=== PATIENT | male | born 1980 | race Caucasian/White ===

== ENCOUNTER 2017-04-24 18:01 | Inpatient (IN) ==
[2017-04-24] MEDS ORDERED: Vancomycin 1,000 MG in D5% in Water 250 ML IVPB ONE (20:32)
[2017-04-24 21:13] LABS: Basophils % 0.4 %; Eosinophils # 0.5 K/mcL (0.0-0.6); Eosinophils % 4.6 %; Hematocrit 45.1 % (37.5-50.1); Hemoglobin 15.4 g/dL (12.9-16.9); Immature Granulocytes % 0.2 % (0-4); Lymphocytes # 3.1 K/mcL (0.6-4.6); Lymphocytes % 31.6 %; Mean Corpuscular HGB Conc 34.1 g/dL (31.6-35.5); Mean Corpuscular Hemoglobin 30.3 pg (28.0-33.3); Mean Corpuscular Volume 88.8 fL (83.0-100.0); Mean Platelet Volume 10.1 fL (9.4-12.4); Monocytes # 0.9 K/mcL (0.0-1.3); Monocytes % 9.2 %; Neutrophils # 5.3 K/mcL (1.6-8.9); Platelet Count 195 K/mcL (140-400); Red Blood Count 5.08 M/mcL (4.19-5.50); Red Cell Distribution Width 13.5 % (11.5-14.5)
[2017-04-24 21:28] LABS: Alanine Aminotransferase 120 Units/L (0-55); Alkaline Phosphatase 53 Units/L (38-126); Aspartate Amino Transferase 54 Units/L (5-34); BUN/Creatinine Ratio 14 (6-26); Bilirubin,Total 0.6 mg/dL (0.2-1.2); Blood Urea Nitrogen 14 mg/dL (8-26); C-Reactive Protein 1 mg/L (Less than 5); Calcium 9.7 mg/dL (8.6-10.8); Carbon Dioxide 31 mEq/L (19-29); Chloride 103 mEq/L (98-109); Globulin 3.9 g/dL (2.4-3.5); Glucose 92 mg/dL (70-99); Osmolality,Calculated 292 (280-300); Potassium 4.1 mEq/L (3.5-4.5); Sodium 141 mEq/L (136-145); Total Protein 7.9 g/dL (6.0-8.3); eGFR For African Americans > 60 (> 60); eGFR For Non-African Americans > 60 (> 60)
[2017-04-24] MEDS ORDERED: Ketorolac 30 MG/ML VIAL IVP ONE (22:18)
--- NOTE | 2017-04-24 23:52 | Emergency Department Note ---
Disposition Clinical Impression: Cellulitis Qualifiers: Site of cellulitis: extremity Site of cellulitis of extremity: lower extremity Laterality: right Qualified Code(s): L03.115 - Cellulitis of right lower limb Disposition: Admitted As Inpatient Condition: Good Referrals: Ada Sierra CNP [Primary Care Provider] - Extremity Problem HPI - General Chief complaint: ED Extremity Problem,Nontraumatic Stated complaint: "infection in leg" Time Seen by Provider: 04/24/17 20:24 Source: patient Limitations: no limitations Nursing Notes Reviewed: Yes Vital Signs Reviewed: Yes - History of Present Illness HPI Narrative: 36-year-old male who presents with concern for right popliteal swelling and pain. History of drug abuse. Denies recent drug abuse but he has been in rehabilitation previously. He was actually seen 2 nights ago for symptoms of anxiety. He now has pain and redness in the popliteal fossa. He has no recent travel, trauma, recent injection history. General: No acute distress HEENT: Pupils equal and reactive to light, extraoccular muscle movement is normal, TMS are clear bilaterally. Heart: RRR, No murmor rub or gallop Lungs: lungs clear, no wheezing, rales or ronchi. ABD: SNT, no focal areas or tenderness, no guarding or rebound tenderness. Extremities: No cyanosis, clubbing or edema Neuro: CN 2-12 in tact, no focal deficit. strength 5/5. Skin shows erythema and pain in the right popliteal fossa. Medical decision making I am concerned about cellulitis given negative duplex findings. Would start vancomycin. He was given Toradol for pain and I did discuss expectations regarding pain control. The patient will be admitted for further evaluation with IV antibiotics. Pain Scale: 5 - Related Data Home Medications Medication Instructions Recorded Confirmed Ibuprofen [Motrin] 400 mg PO Q6HR PRN 04/24/17 04/24/17 Previous Rx's Medication Instructions Recorded hydrOXYzine HCl [Hydroxyzine HCl] 50 mg PO PRN PRN #30 tablet 04/20/17 Allergies Allergy/AdvReac Type Severity Reaction Status Date / Time No Known Allergies Allergy Verified 04/24/17 18:36 All systems ED: reviewed and negative except as stated. Review of Systems: As Per HPI Past Medical History - Past Medical History Medical history: Reports: pulmonary embolus, other Surgical history: Reports: no surgical history Psychiatric history: Reports: anxiety, depression - Social History Smoking Status: Current every day smoker Smokeless Tobacco Status: No Alcohol use: Reports: none Drug use: Reports: none Physical Exam - General Limitations: no limitations General appearance: alert, in no apparent distress Course Vital Signs Temperature 99.0 F 04/24/17 18:33 Pulse Rate 98 04/24/17 18:33 Respiratory Rate 16 04/24/17 18:33 Blood Pressure 119/80 04/24/17 18:33 O2 Sat by Pulse Oximetry 99 04/24/17 18:33 Temperature 99.0 F 04/24/17 18:33 Pulse Rate 98 04/24/17 18:33 Respiratory Rate 16 04/24/17 18:33 Blood Pressure 119/80 04/24/17 18:33 O2 Sat by Pulse Oximetry 99 04/24/17 18:33 Oxygen Delivery Oxygen Delivery Room Air Extremity Problem, Nontraumati - Lab Data Result diagrams: 04/24/17 20:55 04/24/17 20:55 Lab Results 04/24/17 04/24/17 04/24/17 Range/Units 20:55 20:55 20:55 WBC 9.7 (4.3-11.1) K/mcL RBC 5.08 (4.19-5.50) M/mcL Hgb 15.4 (12.9-16.9) g/dL Hct 45.1 (37.5-50.1) % MCV 88.8 (83.0-100.0) fL MCH 30.3 (28.0-33.3) pg MCHC 34.1 (31.6-35.5) g/dL RDW 13.5 (11.5-14.5) % Plt Count 195 (140-400) K/mcL MPV 10.1 (9.4-12.4) fL Immature Gran % 0.2 (0-4) % Seg Neutrophils % 54.0 % Lymphocytes % 31.6 % Monocytes % 9.2 % Eosinophils % 4.6 % Basophils % 0.4 % Neutrophils # 5.3 (1.6-8.9) K/mcL Lymphocytes # 3.1 (0.6-4.6) K/mcL Monocytes # 0.9 (0.0-1.3) K/mcL Eosinophils # 0.5 (0.0-0.6) K/mcL Basophils # 0.0 (0.0-0.2) K/mcL ESR 28 H (0-10) mm/hr Sodium 141 (136-145) mEq/L Potassium 4.1 (3.5-4.5) mEq/L Chloride 103 (98-109) mEq/L Carbon Dioxide 31 H (19-29) mEq/L BUN 14 (8-26) mg/dL Creatinine 0.99 (0.72-1.25) mg/dL Est GFR ( Amer) > 60 (> 60) Est GFR (Non-Af Amer) > 60 (> 60) BUN/Creatinine Ratio 14 (6-26) Glucose 92 (70-99) mg/dL Calculated Osmolality 292 (280-300) Calcium 9.7 (8.6-10.8) mg/dL Total Bilirubin 0.6 (0.2-1.2) mg/dL AST 54 H (5-34) Units/L ALT 120 H (0-55) Units/L Alkaline Phosphatase 53 (38-126) Units/L C-Reactive Protein 1 (Less than 5) mg/L Serum Total Protein 7.9 (6.0-8.3) g/dL Albumin 4.0 (3.5-5.0) g/dL Globulin 3.9 H (2.4-3.5) g/dL Albumin/Globulin Ratio 1.0 L (1.1-2.2)
[2017-04-25] MEDS ORDERED: Naloxone 0.4 MG/ML INJ IVP PRN (01:11)
[2017-04-25] MEDS ORDERED: Acetaminophen 325 MG TABLET PO PRN (01:11)
[2017-04-25] MEDS ORDERED: Ondansetron 4 MG/2 ML VIAL IVP PRN (01:11)
--- NOTE | 2017-04-25 01:16 | Internal Med History&Physical ---
Date of Encounter: 04/25/17 Time of Encounter: 01:00 Assessment and Plan (1) Cellulitis Current visit: Yes Status: Acute Acute cellulitis of the right lower extremity popliteal fossa - unclear etiology Continue empiric IV Vancomycin, IV fluids, IV Morphine PRN Ultrasound Doppler - negative for DVT Cultures - pending Labs in a.m., monitor closely Qualifiers: Site of cellulitis: extremity Site of cellulitis of extremity: lower extremity Laterality: right Qualified Code(s): L03.115 - Cellulitis of right lower limb (2) Tobacco abuse Current visit: Yes Status: Acute Patient states he smokes about 1 pack of cigarettes daily Sinemet cessation, patient declines nicotine patch at this time (3) IV drug abuse Current visit: Yes Status: Acute Patient has a history of drug use, patient states he has injected heroin in the past States he has a prolapsed one time. Most recent use of cocaine was about one week ago, states he snorted the cocaine. Counseled about cessation (4) DVT prophylaxis Current visit: Yes Status: Acute Heparin subcutaneous Internal Medicine - H&P: HPI Chief complaint: Right leg pain and redness Admitted From: Emergency Dept Plans for Post Hospital Care: Home History of present illness: Mr. Osorio is a 36 year old male with past medical history of anxiety and IV drug use. Patient presents to the ED with complaints of right lower leg redness and pain. Examined in the room. Patient is awake and alert. Not in any distress. Able to provide all history. No family members at bedside. Patient states he noticed a small bilateral in the back of his right lower leg about 2-3 days ago. This has gradually worsened, and now patient complains of extensive redness and severe pain in the popliteal region of the right lower extremity. Patient denies fever. Denies any injury or trauma. Denies any insect bite. Patient states that the chair that he sits on at home, is usually rubbing up against his right leg in the posterior aspect. He thinks this may have caused some trauma possibly. Pain seems worse when he tries to flex the knee. No alleviating factors. He describes the pain as sharp and burning. Rates it 7/ 10. No other associated symptoms. No acute complaints. Patient states he did not inject any illicit drugs into the right popliteal fossa. He states he mainly snorts cocaine, and says his last use was about a week ago. Patient denies injecting any other drugs. Initial workup in the ED is negative. Patient is being admitted for acute cellulitis. He will need IV antibiotics during his stay. Patient has been explained about his condition and plan of care in detail. He understood and agreed. No unanswered questions. CODE STATUS full code. Past Med Surg Social Fam HX - Past Medical History Medical history: pulmonary embolus, other Psychiatric history: anxiety, depression - Past Surgical History Surgical History: no surgical history - Social History Smoking Status: Current every day smoker Smokeless Tobacco Status: No Alcohol use: none Drug use: none - Family History Grandmother Living Status: Hx Family Cancer: Yes (Lung Ca.) Internal Medicine - H&P: Meds hydrOXYzine HCl [Hydroxyzine HCl] 50 mg PO PRN PRN #30 tablet 04/20/17 [Rx] Ibuprofen [Motrin] 400 mg PO Q6HR PRN 04/24/17 [History] 3 Allergy/AdvReac Type Severity Reaction Status Date / Time No Known Allergies Allergy Verified 04/24/17 18:36 All Systems PM: A 10-system review of systems was performed and is negative for pertinent findings except as documented above in the HPI. - Constitutional Constitutional: fatigue, no fever(s), no weakness - EENT Eyes: no blurry vision - Cardiovascular Cardiovascular ROS IM: no chest pain, no dyspnea, no dyspnea on exertion, no edema, no lightheadedness, no orthopnea, no palpitations, no syncope - Respiratory Respiratory: no cough, no dyspnea, no hemoptysis, no dyspnea on exertion, no wheezing, no chest congestion - Gastrointestinal Gastrointestinal: no abdominal pain, no bloating, no cramping, no diarrhea, no hematemesis, no hematochezia, no nausea, no vomiting - Genitourinary Genitourinary ROS male: no dysuria - Neurological Neurological ROS: no abnormal gait, no abnormal speech, no confusion, no dizziness, no loss of vision, no numbness, no tingling - Constitutional Vitals: Temp Pulse Resp BP Pulse Ox 97.6 F 85 14 104/82 98 04/25/17 00:46 04/25/17 00:46 04/25/17 00:46 04/25/17 00:46 04/25/17 00:46 General appearance: Present: cooperative, A&O X 3, pleasant, no acute distress, answers questions appropriately - Head Head exam: Present: atraumatic - Eye Eye exam: Present: EOMI - ENT ENT exam: Present: mucous membranes moist - Respiratory Respiratory exam: Present: CTAB. Absent: accessory muscle use, rales, respiratory distress, rhonchi, wheezes, tachypnea - Cardiovascular Cardiovascular exam: Present: RRR, +S1, +S2 - GI/Abdominal GI/Abdominal exam: Present: soft. Absent: distended, firm, guarding, tenderness - Extremities Exam Extremities exam: Present: radial pulses palpable and symmetrical. Absent: calf tenderness, cyanotic, pedal edema Additional comments: Right popliteal fossa erythema and tenderness present. No discharge noted. - Neurological Exam Neurological exam: Present: alert, oriented X3, no focal deficits. Absent: facial droop, speech deficit Internal Med - H&P Results - Labs CBC & Chem 7: 04/24/17 20:55 04/24/17 20:55
[2017-04-25] MEDS: Ibuprofen 400 MG TABLET PO PRN ×2 (02:54→11:06)
[2017-04-25] MEDS: 0.9 % Sodium Chloride 1,000 ML IVC SCH ×2 (02:55→15:44)
[2017-04-25] MEDS: *HR* Morphine 2 MG/ML SYRINGE IVP PRN ×3 (04:03→13:34)
[2017-04-25 05:01] LABS: Basophils # 0.1 K/mcL (0.0-0.2); Basophils % 0.7 %; Eosinophils # 0.5 K/mcL (0.0-0.6); Hematocrit 44.3 % (37.5-50.1); Hemoglobin 15.1 g/dL (12.9-16.9); Immature Granulocytes % 0.2 % (0-4); Lymphocytes # 3.6 K/mcL (0.6-4.6); Lymphocytes % 40.2 %; Mean Corpuscular HGB Conc 34.1 g/dL (31.6-35.5); Mean Corpuscular Hemoglobin 30.3 pg (28.0-33.3); Mean Corpuscular Volume 88.8 fL (83.0-100.0); Monocytes # 0.8 K/mcL (0.0-1.3); Monocytes % 9.2 %; Neutrophils # 3.9 K/mcL (1.6-8.9); Platelet Count 197 K/mcL (140-400); Red Blood Count 4.99 M/mcL (4.19-5.50); Red Cell Distribution Width 13.7 % (11.5-14.5); Segmented Neutrophils % 43.7 %
[2017-04-25 05:27] LABS: BUN/Creatinine Ratio 15 (6-26); Blood Urea Nitrogen 12 mg/dL (8-26); Carbon Dioxide 20 mEq/L (19-29); Chloride 105 mEq/L (98-109); Glucose 98 mg/dL (70-99); Osmolality,Calculated 286 (280-300); Potassium 3.9 mEq/L (3.5-4.5); Sodium 138 mEq/L (136-145); eGFR For African Americans > 60 (> 60); eGFR For Non-African Americans > 60 (> 60)
[2017-04-25] MEDS ORDERED: *HR* Heparin 5,000 UNIT/ML VIAL SQ SCH (06:00)
[2017-04-25] MEDS ORDERED: Vancomycin 1,000 MG in D5% in Water 250 ML IVPB SCH (06:00)
[2017-04-25] MEDS ORDERED: Vancomycin 1,250 MG in D5% in Water 250 ML IVPB SCH (09:00)
[2017-04-25] MEDS ORDERED: MOM Conc 10 ML UD.LIQ PO ONE (13:42)
[2017-04-25 15:43] VITALS: BP 136/84
--- NOTE | 2017-04-25 16:47 | Discharge Summary ---
Date of Encounter: 04/26/17 Time of Encounter: 16:00 - Discharge Diagnosis (1) Psychosis Priority: Primary Status: Acute Qualifiers: Psychosis type: other Qualified Code(s): F28 - Other psychotic disorder not due to a substance or known physiological condition (2) Cellulitis Priority: Primary Status: Acute Qualifiers: Site of cellulitis: extremity Site of cellulitis of extremity: lower extremity Laterality: right Qualified Code(s): L03.115 - Cellulitis of right lower limb (3) IV drug abuse Priority: Secondary Status: Acute - Discharge Medications Prescriptions: Sulfamethoxazole/Trimeth DS [Bactrim DS] 1 each PO BID #14 tablet Home Medications: hydrOXYzine HCl [Hydroxyzine HCl] 50 mg PO PRN PRN #30 tablet 04/20/17 [Rx] Ibuprofen [Motrin] 400 mg PO Q6HR PRN 04/24/17 [History] Sulfamethoxazole/Trimeth DS [Bactrim DS] 1 each PO BID #14 tablet 04/25/17 [Rx] Allergies/Adverse Reactions: 3 Allergy/AdvReac Type Severity Reaction Status Date / Time No Known Allergies Allergy Verified 04/24/17 18:36 Date of admission: 04/25/17 03:00 Primary care physician: Ada Sierra CNP - Patient Status Disposition: Left Against Medical Advice - Discharge Instructions Follow Up With: Ada Sierra CNP [Primary Care Provider] - Hospital course: 36 year old male with past medical history of anxiety and IV drug use. Patient presents to the ED with complaints of right lower leg redness and pain. He was admitted with right popliteal cellulites and was on IV vancomycin on initial presentation. I saw the patient in the morning and he was hemodynamically stable. Later in the afternoon, he had a friend come in and the door was shut. After that the patient started hallucinating and acccusing the staff of being rude to him. I went and talked to him and he was actually very pleasant and polite. I reassured him that everyone is trying to help him. I suspected the patient may have been under the influence of some type of a drug given his acute change in mental status after his friend had visited. I ordered a urine drug screen. when the nurse came to collect it, he refused and asked to be discharged. He left against medical advice. I still wrote him a script of Bactrim at [facility]. He was explained the risk of leaving prior to leaving AMA. - Time Spent with Patient Total time spent providing and/or coordinating discharge services: - Constitutional Vitals: Temp Pulse Resp BP Pulse Ox 98.7 F 77 16 136/84 96 04/25/17 15:10 04/25/17 15:10 04/25/17 15:10 04/25/17 15:10 04/25/17 15:10 General appearance: Present: cooperative, A&O X 3, pleasant, no acute distress, answers questions appropriately Exam: He was alert and oriented x3 when he was deciding to leave. He had total medical decision making capacity.
[2017-04-25] MEDS ORDERED: Aminoglycoside Consult 1 EACH MC ONE (16:57)
== END 2017-04-25 16:58 | disposition left against medical advice (07) | DRG 603 ==
LOC: EMEROO 18:01 → 3ANU 18:01
PROVIDERS: ADMIT Internal Medicine; ATTEND Internal Medicine

== ENCOUNTER 2018-05-20 16:35 | Inpatient (IN) ==
[2018-05-20 17:41] LABS: Bilirubin,Urine Negative (Negative); Blood,Urine Negative (Negative); Clarity,Urine Clear (Clear); Color,Urine Dark Yellow (Yellow); Glucose,Urine (UA) Normal (Normal); Ketones,Urine Trace mg/dL (Negative); Leukocyte Esterase,Urine Negative (Negative); Nitrite,Urine Negative (Negative); Protein,Urine Negative (Neg-Trace); Urobilinogen,Urine Normal (Normal)
[2018-05-20 17:46] LABS: Basophils # 0.1 K/mcL (0.0-0.2); Basophils % 0.4 %; Eosinophils # 0.1 K/mcL (0.0-0.6); Eosinophils % 0.8 %; Hematocrit 43.3 % (37.5-50.1); Hemoglobin 15.2 g/dL (12.9-16.9); Immature Granulocytes % 0.2 % (0-4); Lymphocytes # 2.6 K/mcL (0.6-4.6); Lymphocytes % 22.6 %; Mean Corpuscular HGB Conc 35.1 g/dL (31.6-35.5); Mean Corpuscular Hemoglobin 30.8 pg (28.0-33.3); Mean Corpuscular Volume 87.8 fL (83.0-100.0); Monocytes # 0.6 K/mcL (0.0-1.3); Monocytes % 5.2 %; Neutrophils # 8.1 K/mcL (1.6-8.9); Platelet Count 201 K/mcL (140-400); Red Blood Count 4.93 M/mcL (4.19-5.50); Red Cell Distribution Width 12.9 % (11.5-14.5); Segmented Neutrophils % 70.8 %
--- NOTE | 2018-05-20 17:52 | Emergency Department Note ---
Disposition Clinical Impression: Suicidal ideation Disposition: Still a Patient Referrals: NONE,PCP [Primary Care Provider] - General Adult HPI - General Chief complaint: ED Psychiatric Symptoms Stated complaint: SI; depression Time Seen by Provider: 05/20/18 17:26 Source: patient Limitations: no limitations Nursing Notes Reviewed: Yes Vital Signs Reviewed: Yes - History of Present Illness HPI Narrative: Attestation note I examined this patient and my medical decision-making was reviewed with the Resident Physician/[employer] HELPER/PA. I agree with the documented findings, disposition and treatment plan as described except to the extent set forth below Patient seen with emergency medicine resident Demetra Thapa, please see copy of his note for details of this patient encounter Briefly: 37-year-old male by EMS for depression and anxiety has a plan for the past 2 days he was recently admitted but he left before psychiatric evaluation so he says. He has been admitted in the past. He denies any drugs or alcohol tonight. His physical examination is benign he is afebrile with stable vitals. Patient will undergo medical clearance and consultation by mental health services.Being ordered. Disposition pending Pain Scale: 0 - Related Data Home Medications Medication Instructions Recorded Confirmed Ibuprofen [Motrin] 400 mg PO Q6HR PRN 04/24/17 04/24/17 Previous Rx's Medication Instructions Recorded hydrOXYzine HCl [Hydroxyzine HCl] 50 mg PO PRN PRN #30 tablet 04/20/17 Sulfamethoxazole/Trimeth DS 1 each PO BID #14 tablet 04/25/17 [Bactrim DS] HydrOXYzine 10 mg PO TID PRN #20 tablet 05/17/18 Allergies Allergy/AdvReac Type Severity Reaction Status Date / Time No Known Allergies Allergy Verified 04/24/17 18:36 Past Medical History - Past Medical History Medical history: Reports: pulmonary embolus, other Surgical history: Reports: no surgical history Psychiatric history: Reports: anxiety, depression - Social History Smoking Status: Current every day smoker Smokeless Tobacco Status: No Alcohol use: Reports: none Drug use: Reports: cocaine, marijuana Physical Exam - General Limitations: no limitations General appearance: alert, in no apparent distress Course Vital Signs Temperature 98.2 F 05/20/18 16:41 Pulse Rate 72 05/20/18 16:41 Respiratory Rate 14 05/20/18 16:41 Blood Pressure 119/76 05/20/18 16:41 O2 Sat by Pulse Oximetry 99 01/02/19 16:41 Temperature 98.2 F 05/20/18 16:49 Pulse Rate 72 05/20/18 16:49 Respiratory Rate 14 05/20/18 16:49 Blood Pressure 119/76 05/20/18 16:49 O2 Sat by Pulse Oximetry 99 05/20/18 16:49 Oxygen Delivery Oxygen Delivery Room Air Medical Decision Making - Lab Data Result diagrams: 05/20/18 17:38 Lab Results 05/20/18 05/20/18 05/20/18 Range/Units 17:00 17:00 17:38 WBC 11.5 H (4.3-11.1) K/mcL RBC 4.93 (4.19-5.50) M/mcL Hgb 15.2 (12.9-16.9) g/dL Hct 43.3 (37.5-50.1) % MCV 87.8 (83.0-100.0) fL MCH 30.8 (28.0-33.3) pg MCHC 35.1 (31.6-35.5) g/dL RDW 12.9 (11.5-14.5) % Plt Count 201 (140-400) K/mcL MPV 10.0 (9.4-12.4) fL Immature Gran % 0.2 (0-4) % Seg Neutrophils % 70.8 % Lymphocytes % 22.6 % Monocytes % 5.2 % Eosinophils % 0.8 % Basophils % 0.4 % Neutrophils # 8.1 (1.6-8.9) K/mcL Lymphocytes # 2.6 (0.6-4.6) K/mcL Monocytes # 0.6 (0.0-1.3) K/mcL Eosinophils # 0.1 (0.0-0.6) K/mcL Basophils # 0.1 (0.0-0.2) K/mcL Urine Color Dark Yellow (Yellow) Urine Clarity Clear (Clear) Urine pH 6.0 (5.0-8.0) pH Units Ur Specific [place] 1.020 (1.010-1.025) Urine Protein Negative (Neg-Trace) mg/dL Urine Glucose (UA) Normal (Normal) mg/dL Urine Ketones Trace H (Negative) mg/dL Urine Blood Negative (Negative) Urine Nitrite Negative (Negative) Urine Bilirubin Negative (Negative) Urine Urobilinogen Normal (Normal) mg/dL Ur Leukocyte Esterase Negative (Negative) Ur Drug Screen Interp See Below
[2018-05-20 18:02] LABS: Amphetamine Screen,Urine Negative ng/mL (Cutoff=1000); Barbiturate Screen,Urine Positive ng/mL (Cutoff=200); Benzodiazepines Screen,Urine Negative ng/mL (Cutoff=200); Cannabinoid Screen,Urine Positive ng/mL (Cutoff = 50); Cocaine Screen,Urine Positive ng/mL (Cutoff= 300); Opiate Screen,Urine Negative ng/mL (Cutoff=300); Phencyclidine Screen,Urine Negative ng/mL (Cutoff=25)
[2018-05-20 18:06] LABS: Acetaminophen < 10 mcg/mL (10-20); BUN/Creatinine Ratio 14 (6-26); Blood Urea Nitrogen 12 mg/dL (6-20); Calcium 9.2 mg/dL (8.6-10.3); Carbon Dioxide 27 mEq/L (23-29); Chloride 105 mEq/L (98-107); Ethanol < 10 mg/dL (Less than 10); Glucose 125 mg/dL (70-105); Osmolality,Calculated 287 (280-300); Potassium 3.7 mEq/L (3.5-5.1); Salicylate < 2.5 mg/dL (15.0-30.0); Sodium 138 mEq/L (136-145); eGFR For Non-African Americans > 60 (> 60)
--- NOTE | 2018-05-20 20:09 | Emergency Department Note ---
Disposition Clinical Impression: Suicidal ideation, Substance abuse Disposition: Admitted As Inpatient Condition: Fair Referrals: NONE,PCP [Primary Care Provider] - Forms: ED Satisfaction Letter Time of Disposition: 20:10 Psych HPI - General Chief Complaint: ED Psychiatric Symptoms Stated Complaint: SI; depression Time Seen by Provider: 05/20/18 17:26 Source: patient Mode of arrival: ambulatory Limitations: no limitations Nursing Notes Reviewed: Yes Vital Signs Reviewed: Yes - History of Present Illness HPI Narrative: 37-year-old male history of SI, depression presents for evaluation of SI. Patient also has history of substance abuse and cocaine use and used earlier today. Patient states that he does have a plan. No history of prior attempts. Patient denies any homicidal ideation. No visual hallucinations or delusions. Denies any chest pain or shortness of breath. Denies any abdominal pain fevers nausea or vomiting. - Related Data Home Medications Medication Instructions Recorded Confirmed Ibuprofen [Motrin] 400 mg PO Q6HR PRN 04/24/17 04/24/17 Previous Rx's Medication Instructions Recorded hydrOXYzine HCl [Hydroxyzine HCl] 50 mg PO PRN PRN #30 tablet 04/20/17 Sulfamethoxazole/Trimeth DS 1 each PO BID #14 tablet 04/25/17 [Bactrim DS] HydrOXYzine 10 mg PO TID PRN #20 tablet 05/17/18 Allergies Allergy/AdvReac Type Severity Reaction Status Date / Time No Known Allergies Allergy Verified 04/24/17 18:36 All systems ED: reviewed and negative except as stated. Constitutional: Denies: fever Cardiovascular: Denies: chest pain Respiratory: Denies: cough, dyspnea Gastrointestinal: Denies: abdominal pain, nausea, vomiting Psychiatric: Reports: depression, suicidal thoughts. Denies: homicidal thoughts Past Medical History - Past Medical History Source: patient Medical history: Reports: pulmonary embolus, other Surgical history: Reports: no surgical history Psychiatric history: Reports: anxiety, depression - Social History Smoking Status: Current every day smoker Smokeless Tobacco Status: No Alcohol use: Reports: none Drug use: Reports: cocaine, marijuana Physical Exam - General Limitations: no limitations General appearance: alert, in no apparent distress - Head Head exam: atraumatic, normocephalic, normal inspection - Eye Eye exam: Present: normal appearance, PERRL, EOMI - ENT ENT exam: normal exam, normal oropharynx, mucous membranes moist - Neck Neck exam: Present: normal inspection - Chest Chest inspection: Present: normal inspection - Respiratory Respiratory exam: Present: normal lung sounds bilaterally. Absent: respiratory distress - Cardiovascular Cardiovascular exam: Present: regular rate, normal rhythm. Absent: systolic murmur - Abdominal Exam Abdominal exam: Present: soft, Non-Tender - Extremities Exam Extremities exam: Present: normal inspection. Absent: pedal edema - Neurological Exam Neurological exam: Present: alert, oriented X3 - Psychiatric Psychiatric exam: Present: depressed - Skin Skin exam: Present: warm, dry, intact, normal color Course Vital Signs Temperature 98.2 F 05/20/18 16:41 Pulse Rate 72 05/20/18 16:41 Respiratory Rate 14 05/20/18 16:41 Blood Pressure 119/76 05/20/18 16:41 O2 Sat by Pulse Oximetry 99 05/20/18 16:41 Temperature 98.2 F 05/20/18 16:49 Pulse Rate 72 05/20/18 16:49 Respiratory Rate 14 05/20/18 16:49 Blood Pressure 119/76 05/20/18 16:49 O2 Sat by Pulse Oximetry 99 05/20/18 16:49 Oxygen Delivery Oxygen Delivery Room Air Psych - MDM Narrative Medical decision making narrative: Patient was medically cleared and had psychiatric evaluation. Attempted to sinus contact with the discussion with the mother who did not feel comfortable with the patient being sent home with his history of suicidal ideation and verbal threats. Patient will be admitted to the psychiatry service at [facility]. Patient was provided with substance abuse resources. Patient is pink slipped. - Lab Data Result diagrams: 05/20/18 17:38 05/20/18 17:38 Lab Results 05/20/18 05/20/18 05/20/18 Range/Units 17:00 17:00 17:38 WBC 11.5 H (4.3-11.1) K/mcL RBC 4.93 (4.19-5.50) M/mcL Hgb 15.2 (12.9-16.9) g/dL Hct 43.3 (37.5-50.1) % MCV 87.8 (83.0-100.0) fL MCH 30.8 (28.0-33.3) pg MCHC 35.1 (31.6-35.5) g/dL RDW 12.9 (11.5-14.5) % Plt Count 201 (140-400) K/mcL MPV 10.0 (9.4-12.4) fL Immature Gran % 0.2 (0-4) % Seg Neutrophils % 70.8 % Lymphocytes % 22.6 % Monocytes % 5.2 % Eosinophils % 0.8 % Basophils % 0.4 % Neutrophils # 8.1 (1.6-8.9) K/mcL Lymphocytes # 2.6 (0.6-4.6) K/mcL Monocytes # 0.6 (0.0-1.3) K/mcL Eosinophils # 0.1 (0.0-0.6) K/mcL Basophils # 0.1 (0.0-0.2) K/mcL Sodium (136-145) mEq/L Potassium (3.5-5.1) mEq/L Chloride (98-107) mEq/L Carbon Dioxide (23-29) mEq/L BUN (6-20) mg/dL Creatinine (0.70-1.30) mg/dL Est GFR ( Amer) (> 60) Est GFR (Non-Af Amer) (> 60) BUN/Creatinine Ratio (6-26) Glucose (70-105) mg/dL Calculated Osmolality (280-300) Calcium (8.6-10.3) mg/dL Urine Color Dark Yellow (Yellow) Urine Clarity Clear (Clear) Urine pH 6.0 (5.0-8.0) pH Units Ur Specific [place] 1.020 (1.010-1.025) Urine Protein Negative (Neg-Trace) mg/dL Urine Glucose (UA) Normal (Normal) mg/dL Urine Ketones Trace H (Negative) mg/dL Urine Blood Negative (Negative) Urine Nitrite Negative (Negative) Urine Bilirubin Negative (Negative) Urine Urobilinogen Normal (Normal) mg/dL Ur Leukocyte Esterase Negative (Negative) Salicylates (15.0-30.0) mg/dL Urine Opiates Screen Negative (Ljlkgk=447) ng/mL Acetaminophen (10-20) mcg/mL Ur Barbiturates Screen Positive H (Gvnnpu=935) ng/mL Ur Phencyclidine Scrn Negative (Cutoff=25) ng/mL Ur Amphetamines Screen Negative (Xaemim=1505) ng/mL U Benzodiazepines Scrn Negative (Cazcyj=566) ng/mL Urine Cocaine Screen Positive H (Cutoff= 300) ng/mL U Marijuana (THC) Screen Positive H (Cutoff = 50) ng/mL Ur Drug Screen Interp See Below Ethyl Alcohol (Less than 10) mg/dL 05/20/18 Range/Units 17:38 WBC (4.3-11.1) K/mcL RBC (4.19-5.50) M/mcL Hgb (12.9-16.9) g/dL Hct (37.5-50.1) % MCV (83.0-100.0) fL MCH (28.0-33.3) pg MCHC (31.6-35.5) g/dL RDW (11.5-14.5) % Plt Count (140-400) K/mcL MPV (9.4-12.4) fL Immature Gran % (0-4) % Seg Neutrophils % % Lymphocytes % % Monocytes % % Eosinophils % % Basophils % % Neutrophils # (1.6-8.9) K/mcL Lymphocytes # (0.6-4.6) K/mcL Monocytes # (0.0-1.3) K/mcL Eosinophils # (0.0-0.6) K/mcL Basophils # (0.0-0.2) K/mcL Sodium 138 (136-145) mEq/L Potassium 3.7 (3.5-5.1) mEq/L Chloride 105 (98-107) mEq/L Carbon Dioxide 27 (23-29) mEq/L BUN 12 (6-20) mg/dL Creatinine 0.86 (0.70-1.30) mg/dL Est GFR ( Amer) > 60 (> 60) Est GFR (Non-Af Amer) > 60 (> 60) BUN/Creatinine Ratio 14 (6-26) Glucose 125 H (70-105) mg/dL Calculated Osmolality 287 (280-300) Calcium 9.2 (8.6-10.3) mg/dL Urine Color (Yellow) Urine Clarity (Clear) Urine pH (5.0-8.0) pH Units Ur Specific [place] (1.010-1.025) Urine Protein (Neg-Trace) mg/dL Urine Glucose (UA) (Normal) mg/dL Urine Ketones (Negative) mg/dL Urine Blood (Negative) Urine Nitrite (Negative) Urine Bilirubin (Negative) Urine Urobilinogen (Normal) mg/dL Ur Leukocyte Esterase (Negative) Salicylates < 2.5 L (15.0-30.0) mg/dL Urine Opiates Screen (Ehtyok=353) ng/mL Acetaminophen < 10 L (10-20) mcg/mL Ur Barbiturates Screen (Wlhmhy=049) ng/mL Ur Phencyclidine Scrn (Cutoff=25) ng/mL Ur Amphetamines Screen (Bawxqh=4358) ng/mL U Benzodiazepines Scrn (Qhldrx=452) ng/mL Urine Cocaine Screen (Cutoff= 300) ng/mL U Marijuana (THC) Screen (Cutoff = 50) ng/mL Ur Drug Screen Interp Ethyl Alcohol < 10 (Less than 10) mg/dL Psychiatric Medical Clearance - Medical Clearance Checklist Medical History: No Social History Section defined Current Vitals: Last Vital Signs Temp 98.2 F 05/20/18 16:49 Pulse 72 05/20/18 16:49 Resp 14 05/20/18 16:49 BP 119/76 05/20/18 16:49 Pulse Ox 99 05/20/18 16:49 Psychiatric Lab Panel: Drug Levels and Toxicity 05/20/18 05/20/18 17:00 17:38 Urine Opiates Screen Negative Acetaminophen < 10 L Ur Barbiturates Screen Positive H Ur Phencyclidine Scrn Negative Ur Amphetamines Screen Negative U Benzodiazepines Scrn Negative Urine Cocaine Screen Positive H U Marijuana (THC) Screen Positive H Ethyl Alcohol < 10 Abnormal Labs: Abnormal lab results WBC 11.5 K/mcL (4.3-11.1) H 05/20/18 17:38 Glucose 125 mg/dL (70-105) H 05/20/18 17:38 Urine Ketones Trace mg/dL (Negative) H 05/20/18 17:00 Salicylates < 2.5 mg/dL (15.0-30.0) L 05/20/18 17:38 Acetaminophen < 10 mcg/mL (10-20) L 05/20/18 17:38 Ur Barbiturates Screen Positive ng/mL (Xtrxuc=640) H 05/20/18 17:00 Urine Cocaine Screen Positive ng/mL (Cutoff= 300) H 05/20/18 17:00 U Marijuana (THC) Screen Positive ng/mL (Cutoff = 50) H 05/20/18 17:00 Statement of Medical Clearance: I have evaluated the patient, reviewed diagnostic information, and certify that the patient's medical condition is sufficiently stable that transfer to the psychiatric unit does not pose a significant risk of deterioration.
[2018-05-20] MEDS ORDERED: *HR* LORazepam 2 MG/ML VIAL IM PRN (22:02)
[2018-05-20] MEDS ORDERED: Haloperidol Lactate 5 MG/ML VIAL IM PRN (22:02)
[2018-05-20] MEDS ORDERED: hydrOXYzine pamoate 25 MG CAPSULE PO PRN (22:02)
[2018-05-20] MEDS ORDERED: Acetaminophen 325 MG TABLET PO PRN (22:02)
[2018-05-20] MEDS ORDERED: *HR* LORazepam 1 MG TABLET PO PRN (22:02)
[2018-05-20] MEDS ORDERED: MOM Conc 10 ML UD.LIQ PO PRN (22:02)
[2018-05-20] MEDS ORDERED: Mag Hydrox/Al Hydrox/Simeth 30 ML UDC PO PRN (22:02)
--- NOTE | 2018-05-21 12:08 | Psychiatry History & Physical ---
Date of Encounter: 05/21/18 Time of Encounter: 11:45 History of Present Illness Medicare Admission Attestation: For traditional Medicare patients the provided hospital inpatient services are reasonable and necessary and in the case of services not specified as inpatient-only under 42 CFR 419.22 (n), that they are appropriately provided as inpatient services in accordance 42 CFR 412.3. For Critical Access Hospital the patient may reasonably be expected to be discharged or transferred to a hospital within 96 hours after admission to the Critical Access Hospital. Admitted From: Home Plans for Post Hospital Care: Home History of Present Illness: 37-year-old male history of SI, depression presents for evaluation of SI. Patient also has history of substance abuse and cocaine use and used earlier today. Patient states that he does have a plan. No history of prior attempts. Patient denies any homicidal ideation. No visual hallucinations or delusions. Denies any chest pain or shortness of breath. Denies any abdominal pain fevers nausea or vomiting. Erwin Osorio is a 37 year old male, never , with one 19 yo son, who presented to the emergency room with complaints of depression and polysubstance abuse. Pt noted some college, with trade school in construction. Pt noted her mother and father are alive and involved inpts life. Pt noted one previous inpt psychiatric admissions when he was 24. Pt denied any previous suicide attempts. Pt denied any family mental health issues. Pt denied any family hx of suicide. Pt denied any hx of abuse, trauma or neglect. Pt Noted he was doing "not too good today." Pt stated that his appetite was "good....." Pt stated that he slept "5-6 houtrs broken." last night. Pt noted his appetite is "okay." Pt rated his depression a "0," on a scale of zero to ten with ten being the worst and zero being none. Pt rated his anxiety a "0," on the same scale. Pt denied any current thoughts to harm anyone else. Pt noted passive suicidal ideation with no current plan at this time. Pt noted he currently feels safe and comfortable on the unit. Pt denied any auditory or visual hallucinations. Pt denied any hx of TBIs, Hep C, HIV or Seizures. Tobacco: 1PPD Street drugs: Cocaine and marijuana regualrly Alcohol: once per year on new years Caffeine: 1-2 per day. 1. Psychiatric Illness management 2. Legal Status: voluntary 3. The treatment team reviewed with the patient the diagnosis and treatment recommendations to include the risks, benefits, and side effects of chosen medications. 4. The patient verbalized understanding and agreed with the treatment regimen as outlined above. 5. The patient was encouraged to participate in groups. 6. Medical records, Labs, Diagnotic tests reviewed 7. Interval History. 8. Review current labs 9. Continue current medications 10. Supportive Therapy Provided 11. Pt had an opportunity to ask questions and address concerns 12. Pt encouraged to continue therapy group or individual. 13. Pt was in agreement with treatment plan. 14. The risks benefits and side effects of medications were discussed with the patient, including alternatives and no treatment. 15. Start wellbutrin 150 XL daily fro mood. Past Med Surg Social Fam HX - Past Medical History Medical history: pulmonary embolus, other - Past Psychiatric History Psychiatric history: Reports: depression Family psychiatric history: No Family History of Suicide: None - Past Surgical History Surgical History: orthopedic, other - Social History Smoking Status: Current every day smoker Smokeless Tobacco Status: No Alcohol use: none Drug use: cocaine, marijuana - Family History Grandmother Living Status: Hx Family Cancer: Yes (Lung Ca.) Medications & Allergies No Known Home Drugs 05/20/18 [History] Allergy/AdvReac Type Severity Reaction Status Date / Time trazodone Allergy See Verified 05/20/18 21:50 Comments sertraline [From Zoloft] AdvReac See Verified 05/20/18 21:50 Comments Review of Systems Constitutional: Denies: fever, chills, weakness, weight change Eyes: Denies: eye pain, vision change Ears, Nose, Throat: Denies: ear pain, throat pain, dental pain, hearing loss, congestion Cardiovascular: Denies: chest pain, palpitations, dyspnea on exertion Respiratory: Denies: cough, dyspnea, wheezes Gastrointestinal: Denies: abdominal pain, nausea, vomiting, diarrhea, cons tipation Genitourinary male: Denies: urgency, dysuria, frequency, genital lesions Musculoskeletal: Denies: joint swelling, joint pain Integumentary: Denies: rash, lesions, pruritus Neurological: Denies: headache, weakness, numbness, memory loss Psychiatric: Reports: depression Endocrine: Denies: fatigue, heat or cold intolerance Hematologic/Lymphatic: Denies: easy bruising, lymphadenopathy Allergic/Immunologic: Denies: urticaria, itchy eyes Exam - HEENT Head exam IM: Present: atraumatic Eye exam IM: Present: EOMI, normal appearance, PERRL ENT exam IM: Present: normal exam - Neurological Neurological exam: Present: CN II-XII intact - Respiratory Respiratory exam IM: Present: CTAB - GI/Abdominal GI/Abdominal exam IM: Present: normal bowel sounds, soft. Absent: tenderness - Extremities Extremities exam IM: Present: full ROM - Skin Skin exam IM: Present: dry, warm - Constitutional Vitals: Temp Pulse Resp BP Pulse Ox 97.7 F 55 16 118/81 99 05/21/18 08:23 05/21/18 08:23 05/21/18 08:23 05/21/18 08:23 05/21/18 08:23 General appearance: age & developmentally appropriate, well-groomed, well- nourished - Musculoskeletal Gait: normal Station: relaxed Strength & Tone: normal for patient - Psychiatric Patient Orientation: Yes Person, Yes Time, Yes Place Level of alertness: Alert Behavior: calm, cooperative Psychomotor activity: Normal Eye Contact: Maintains Eye Contact Mood Description: Euthymic/stable, Depressed Affect description: congruent with mood, full range Speech Volume: Normal Speech pattern: normal rate, normal rhythm, normal tone, fluent, spontaneous Language & Vocabulary: consistent with education Thought Process: Linear, Goal Oriented Thought Content: No Suicidal ideation, No Homicidal ideation, No Overt delusions Perceptual Disturbances: No Auditory hallucinations, No Visual hallucinations Attention Span Ability: Capable of Focused Attention Memory Description: Grossly Intact Patient Reliability: Reliable Historian Fund of knowledge: Yes abstraction ability, Yes average, Yes aware of current events Intelligence Estimate: Average Judgment: Limited Insight: Partial Results - Drug Levels and Toxicology Drug Levels and Toxicology: Drug Levels and Toxicity 05/20/18 05/20/18 17:00 17:38 Urine Opiates Screen Negative Acetaminophen < 10 L Ur Barbiturates Screen Positive H Ur Phencyclidine Scrn Negative Ur Amphetamines Screen Negative U Benzodiazepines Scrn Negative Urine Cocaine Screen Positive H U Marijuana (THC) Screen Positive H Ethyl Alcohol < 10 - Labs Labs: Laboratory Last Values WBC 11.5 K/mcL (4.3-11.1) H 05/20/18 17:38 RBC 4.93 M/mcL (4.19-5.50) 05/20/18 17:38 Hgb 15.2 g/dL (12.9-16.9) 05/20/18 17:38 Hct 43.3 % (37.5-50.1) 05/20/18 17:38 MCV 87.8 fL (83.0-100.0) 05/20/18 17:38 MCH 30.8 pg (28.0-33.3) 05/20/18 17:38 MCHC 35.1 g/dL (31.6-35.5) 05/20/18 17:38 RDW 12.9 % (11.5-14.5) 05/20/18 17:38 Plt Count 201 K/mcL (140-400) 05/20/18 17:38 MPV 10.0 fL (9.4-12.4) 05/20/18 17:38 Immature Gran % 0.2 % (0-4) 05/20/18 17:38 Seg Neutrophils % 70.8 % 05/20/18 17:38 Lymphocytes % 22.6 % 05/20/18 17:38 Monocytes % 5.2 % 05/20/18 17:38 Eosinophils % 0.8 % 05/20/18 17:38 Basophils % 0.4 % 05/20/18 17:38 Neutrophils # 8.1 K/mcL (1.6-8.9) 05/20/18 17:38 Lymphocytes # 2.6 K/mcL (0.6-4.6) 05/20/18 17:38 Monocytes # 0.6 K/mcL (0.0-1.3) 05/20/18 17:38 Eosinophils # 0.1 K/mcL (0.0-0.6) 05/20/18 17:38 Basophils # 0.1 K/mcL (0.0-0.2) 05/20/18 17:38 Sodium 138 mEq/L (136-145) 05/20/18 17:38 Potassium 3.7 mEq/L (3.5-5.1) 05/20/18 17:38 Chloride 105 mEq/L (98-107) 05/20/18 17:38 Carbon Dioxide 27 mEq/L (23-29) 05/20/18 17:38 BUN 12 mg/dL (6-20) 05/20/18 17:38 Creatinine 0.86 mg/dL (0.70-1.30) 05/20/18 17:38 Est GFR ( Amer) > 60 (> 60) 05/20/18 17:38 Est GFR (Non-Af Amer) > 60 (> 60) 05/20/18 17:38 BUN/Creatinine Ratio 14 (6-26) 05/20/18 17:38 Glucose 125 mg/dL (70-105) H 05/20/18 17:38 Calculated Osmolality 287 (280-300) 05/20/18 17:38 Calcium 9.2 mg/dL (8.6-10.3) 05/20/18 17:38 Urine Color Dark Yellow (Yellow) 05/20/18 17:00 Urine Clarity Clear (Clear) 05/20/18 17:00 Urine pH 6.0 pH Units (5.0-8.0) 05/20/18 17:00 Ur Specific [place] 1.020 (1.010-1.025) 05/20/18 17:00 Urine Protein Negative mg/dL (Neg-Trace) 05/20/18 17:00 Urine Glucose (UA) Normal mg/dL (Normal) 05/20/18 17:00 Urine Ketones Trace mg/dL (Negative) H 05/20/18 17:00 Urine Blood Negative (Negative) 05/20/18 17:00 Urine Nitrite Negative (Negative) 05/20/18 17:00 Urine Bilirubin Negative (Negative) 05/20/18 17:00 Urine Urobilinogen Normal mg/dL (Normal) 05/20/18 17:00 Ur Leukocyte Esterase Negative (Negative) 05/20/18 17:00 Salicylates < 2.5 mg/dL (15.0-30.0) L 05/20/18 17:38 Urine Opiates Screen Negative ng/mL (Aqwatc=594) 05/20/18 17:00 Acetaminophen < 10 mcg/mL (10-20) L 05/20/18 17:38 Ur Barbiturates Screen Positive ng/mL (Hqwgch=440) H 05/20/18 17:00 Ur Phencyclidine Scrn Negative ng/mL (Cutoff=25) 05/20/18 17:00 Ur Amphetamines Screen Negative ng/mL (Kgkwsv=4841) 05/20/18 17:00 U Benzodiazepines Scrn Negative ng/mL (Nrlflm=677) 05/20/18 17:00 Urine Cocaine Screen Positive ng/mL (Cutoff= 300) H 05/20/18 17:00 U Marijuana (THC) Screen Positive ng/mL (Cutoff = 50) H 05/20/18 17:00 Ur Drug Screen Interp See Below 05/20/18 17:00 Ethyl Alcohol < 10 mg/dL (Less than 10) 05/20/18 17:38 Assessment and Plan (1) Depression Current visit: No Status: Acute Plan: Admit inpatient for safety and stabilization, Close observation, Suicide Precautions per unit protocol, Encourage participation in unit milieu, Group Therapy, Monitor sleep, Monitor appetite Risks, benefits, side effects, alternatives discussed w/pt: Yes Patient agreeable to treatment: Yes Plans for Post Hospital Care: at Home Qualifiers: Depression Type: major depressive disorder Active/Remission status: currently active Major depression episode severity: moderate Qualified Code(s): F33.1 - Major depressive disorder, recurrent, moderate (2) Cocaine abuse Current visit: No Status: Acute Risks, benefits, side effects, alternatives discussed w/pt: Yes Patient agreeable to treatment: Yes Plans for Post Hospital Care: at Home (3) Suicidal ideation Current visit: Yes Status: Acute Plan: Admit inpatient for safety and stabilization, Close observation, Suicide Precautions per unit protocol, Encourage participation in unit milieu, Group Therapy, Monitor sleep, Monitor appetite Risks, benefits, side effects, alternatives discussed w/pt: Yes Patient agreeable to treatment: Yes Plans for Post Hospital Care: at Home
[2018-05-21] MEDS: BuPROPion XL (24 HR) 150 MG TABLET PO SCH (12:48)
[2018-05-21] MEDS: Nicotine 21 MG PATCH.TD24 TD SCH (12:49)
[2018-05-22] MEDS: BuPROPion XL (24 HR) 150 MG TABLET PO SCH (08:30)
[2018-05-22] MEDS: Nicotine 21 MG PATCH.TD24 TD SCH (08:30)
[2018-05-22 09:15] VITALS: BP 119/83
--- NOTE | 2018-05-22 11:07 | Discharge Summary ---
Date of Encounter: 05/22/18 Time of Encounter: 09:30 Diagnosis - Discharge Diagnosis (1) Depression Status: Acute Qualifiers: Depression Type: major depressive disorder Active/Remission status: johnnie dior active Major depression episode severity: moderate Qualified Code(s): F33.1 - Major depressive disorder, recurrent, moderate (2) Cocaine abuse Status: Acute (3) Suicidal ideation Status: Acute Medications - Discharge Medications Prescriptions: BuPROPion XL (24 HR) [Wellbutrin Xl] 150 mg PO DAILY 150 Days #30 tab.er.24h BuPROPion XL (24 HR) [Wellbutrin Xl] 150 mg PO DAILY 150 Days #30 tab.er.24h 05/22/18 [Rx] Allergy/AdvReac Type Severity Reaction Status Date / Time trazodone Allergy See Verified 05/20/18 21:50 Comments sertraline [From Zoloft] AdvReac See Verified 05/20/18 21:50 Comments Results Procedures and tests throughout hospitalization: Completed Lab Orders Category Date Time Status Acetaminophen Stat Lab 05/20/18 17:38 Completed Basic Metabolic Panel Stat Lab 05/20/18 17:38 Completed Complete Blood Count [HEME] Stat Lab 05/20/18 17:38 Completed Drug Screen, Urine [UCHEM] Stat Lab 05/20/18 17:00 Completed Ethanol Stat Lab 05/20/18 17:38 Completed Salicylate Stat Lab 05/20/18 17:38 Completed Urinalysis reflex Microscopic [URIN] Stat Lab 05/20/18 17:00 Completed Provider Date of admission: 05/20/18 21:29 Primary care physician: PCP NONE Discharging clinician: Erwin Méndez Psychiatry Exam - Constitutional Vitals: Temp Pulse Resp BP Pulse Ox 97.7 F 55 16 119/83 98 05/22/18 09:00 05/22/18 09:00 05/22/18 09:00 05/22/18 09:00 05/22/18 09:00 General appearance: age & developmentally appropriate, well-groomed, well- nourished - Musculoskeletal Gait: normal Station: relaxed Strength & Tone: normal for patient - Psychiatric Patient Orientation: Yes Person, Yes Time, Yes Place Level of alertness: Alert Behavior: calm, cooperative Psychomotor activity: Normal Eye Contact: Maintains Eye Contact Mood Description: Euthymic/stable Affect description: congruent with mood, full range Speech Volume: Normal Speech pattern: normal rate, normal rhythm, normal tone, fluent, spontaneous Language & Vocabulary: consistent with education Thought Process: Linear, Goal Oriented Thought Content: No Suicidal ideation, No Homicidal ideation, No Overt delusions Perceptual Disturbances: No Auditory hallucinations, No Visual hallucinations Attention Span Ability: Capable of Focused Attention Memory Description: Grossly Intact Patient Reliability: Reliable Historian Fund of knowledge: Yes abstraction ability, Yes aware of current events Intelligence Estimate: Average Judgment: Limited Insight: Partial Hospital Course Hospital course: 37-year-old male history of SI, depression presents for evaluation of SI. PT noted he is doing "very good today and feels safe and comfortable on the unit. Pt Noted he was doing "not too good today." Pt stated that his appetite was "good....." Pt stated that he slept "8 hours." last night. Pt noted his appetite is "okay." Pt rated his depression a "0," on a scale of zero to ten with ten being the worst and zero being none. Pt rated his anxiety a "0," on the same scale. Pt denied any current thoughts to harm anyone else. Pt noted passive suicidal ideation with no current plan at this time. Pt noted he currently feels safe and comfortable on the unit. Pt denied any auditory or vis ual hallucinations. Patient noted a significant reeducation in his depression, cravings and anxiety during his stay at inpatient [facility]. Pt noted that he slowly improved to the point that he was comfortable and safe to D/C. Pt noted he felt his medications were working well and denied any current side effects. Treatment team encouraged Pt to stay out of bed and try to find activities to do, verbalized understanding. pt reported that he felt safe on the unit and comfortable for Home with his mom. Pt Denied suicidal/homicidal ideations, denied any problems or concerns with medications or side effects. PT voiced progression towards treatment goals and was offered a copy of updated treatment plan completed during visit today. Denied any immediate needs or concerns. Pt denied any access to guns or weapons Pt throughout his stay on [facility] pt felt like his medications were working and felt comfortable being discharged on these medications. Pt was advised to take all medications as prescribed, follow up with all scheduled appointments and abstain from any alcohol or illicit substances. Pt was in agreement. Pt felt safe and comfortable to be discharged to his home and follow up out pt mental health. Pt was very optimistic about his D/C. Pt felt safe and comfortable for D/C. Pt stated that he was doing "okay," today. Pt stated that she slept "8 hours," last night. Pt stated that his appetite is"good."Pt stated that he rates his depression a "0," on a scale of 0-10 with 10 being the worst and 0 being none. Pt stated that he rates his anxiety "a 0," on the samescale. Pt denies any auditory or visual hallucinations. Pt denied any thoughts to harm himself or anyone else. Pt felt safe and comfortable for D/C. The patient was educated primarily by verbal means about his diagnoses and their manifestations in his life. The option for treatment including group individual therapy programming was offered to him and the use of medications with all their potential risks, benefits, and side-effects were discussed with the pt at length. Pt was given the opportunity to ask questions and she participated in the treatment and planning process. Pt felt ready and eager to be discharged from the from the inpt psych unit to be discharged home. Pt felt he was safe for this disposition. Pt was considered to be able to participate in informed consent and decision-making with respect to medical, legal and financial issues at the time of his discharge 1. Psychiatric Illness management 2. Legal Status: voluntary 3. The treatment team reviewed with the patient the diagnosis and treatment recommendations to include the risks, benefits, and side effects of chosen medications. 4. The patient verbalized understanding and agreed with the treatment regimen as outlined above. 5. The patient was encouraged to participate in groups. 6. Medical records, Labs, Diagnotic tests reviewed 7. Interval History. 8. Review current labs 9. Continue current medications 10. Supportive Therapy Provided 11. Pt had an opportunity to ask questions and address concerns 12. Pt encouraged to continue therapy group or individual. 13. Pt was in agreement with treatment plan. 14. The risks benefits and side effects of medications were discussed with the patient, including alternatives and no treatment. 15. Continue wellbutrin 150 XL daily for mood. 15. Pt educated on abstaining from any alcohol or illict substances, following up with all scheduled appointments, and taking all medications as prescribed. 16. Pt educated on 90 meetings in 90 days and find a sponsor. 17. D/C pt home. Time spent discussing smoking cessation with patient: more than 10 minutes Does patient wish to continue nicotine replacement upon disc: No - Time Spent with Patient Total time spent providing and/or coordinating discharge services: Greater than 30 minutes Assessment and Plan - Patient/Caregiver Discharge Instructions Activity: resume usual activities as tolerated Diet: regular diet - Follow up Plan Follow up with: NONE,PCP [Primary Care Provider] - Overall status at discharge: Stable Disposition: Home, Self-Care Quality - Multiple Antipsychotics Patient discharged on 2 or more antipsychotic medications: No - Justification Documentation of: No documentation of justification (not on an antipsychotic) Procedures - Procedures Procedures: Medication Management, Crisis Stabilization, Supportive Therapy, Group Therapy, Psychoeducational Therapy
== END 2018-05-22 13:10 | disposition home or self-care (01) | DRG 751 ==
LOC: EMEROOARM 16:35 → 1ANU 21:29
PROVIDERS: ADMIT General Practice; ATTEND General Practice

== ENCOUNTER 2020-01-25 04:12 | Observation (INO) ==
[2020-01-25 04:47] LABS: Basophils % 0.3 %; Eosinophils # 0.2 K/mcL (0.0-0.6); Eosinophils % 1.1 %; Hematocrit 51.3 % (37.5-50.1); Hemoglobin 17.6 g/dL (12.9-16.9); Immature Granulocytes % 0.3 % (0-4); Lymphocytes # 3.1 K/mcL (0.6-4.6); Lymphocytes % 22.9 %; Mean Corpuscular HGB Conc 34.3 g/dL (31.6-35.5); Mean Corpuscular Hemoglobin 30.3 pg (28.0-33.3); Mean Corpuscular Volume 88.4 fL (83.0-100.0); Mean Platelet Volume 10.1 fL (9.4-12.4); Monocytes # 1.4 K/mcL (0.0-1.3); Neutrophils # 8.9 K/mcL (1.6-8.9); Platelet Count 208 K/mcL (140-400); Red Cell Distribution Width 13.1 % (11.5-14.5); Segmented Neutrophils % 65.4 %; White Blood Count 13.5 K/mcL (4.3-11.1)
[2020-01-25 04:59] LABS: Bacteria,Urine Few per hpf (None-Few); Bilirubin,Urine Small (Negative); Blood,Urine Small (Negative); Clarity,Urine Turbid (Clear); Color,Urine Yellow (Yellow); Glucose,Urine (UA) Normal (Normal); Hyaline Casts,Urine Many per lpf (None Seen); Ketones,Urine Trace mg/dL (Negative); Leukocyte Esterase,Urine Negative (Negative); Mucus,Urine Few per lpf (None-Few); Nitrite,Urine Negative (Negative); PH,Urine 5.5 pH Units (5.0-8.0); Protein,Urine 100 mg/dL (Neg-Trace); Specific Gravity,Urine 1.027 (1.010-1.025)
[2020-01-25 05:08] LABS: Acetaminophen < 10 mcg/mL (10-20); Alanine Aminotransferase 140 Units/L (7-52); Albumin 5.6 g/dL (3.5-5.7); Albumin/Globulin Ratio 1.5 (1.1-2.2); Alkaline Phosphatase 57 Units/L (34-104); Aspartate Amino Transferase 86 Units/L (13-39); BUN/Creatinine Ratio 15 (6-26); Bilirubin,Direct 0.3 mg/dL (0.0-0.2); Bilirubin,Indirect 1.4 mg/dL (0.0-1.0); Bilirubin,Total 1.7 mg/dL (0.3-1.0); Blood Urea Nitrogen 32 mg/dL (6-20); Carbon Dioxide 20 mEq/L (23-29); Chloride 98 mEq/L (98-107); Creatine Kinase 1501 Units/L (30-223); Ethanol < 10 mg/dL (Less than 10); Globulin 3.8 g/dL (2.4-3.5); Glucose 146 mg/dL (70-105); Osmolality,Calculated 292 (280-300); Potassium 3.9 mEq/L (3.5-5.1); Salicylate < 2.5 mg/dL (15.0-30.0); Sodium 136 mEq/L (136-145); Total Protein 9.4 g/dL (6.4-8.9); eGFR For African Americans 41 (> 60); eGFR For Non-African Americans 34 (> 60)
[2020-01-25 05:23] LABS: Amphetamine Screen,Urine Positive ng/mL (Cutoff=1000); Barbiturate Screen,Urine Negative ng/mL (Cutoff=200); Benzodiazepines Screen,Urine Negative ng/mL (Cutoff=200); Cannabinoid Screen,Urine Positive ng/mL (Cutoff = 50); Cocaine Screen,Urine Negative ng/mL (Cutoff= 300); Opiate Screen,Urine Negative ng/mL (Cutoff=300); Phencyclidine Screen,Urine Negative ng/mL (Cutoff=25)
[2020-01-25] MEDS ORDERED: 0.9 % Sodium Chloride 1,000 ML IV ONE (05:24)
[2020-01-25] MEDS ORDERED: Naloxone 0.4 MG/ML INJ IVP PRN (05:48)
[2020-01-25] MEDS ORDERED: Ondansetron 4 MG/2 ML VIAL IVP PRN (05:48)
[2020-01-25] MEDS ORDERED: Ringers Solution, Lactated 1,000 ML IVC ONE (05:52)
[2020-01-25] MEDS: Ringers Solution, Lactated 1,000 ML IVC SCH ×2 (07:38→15:21)
[2020-01-25] MEDS: *HR* Heparin 5,000 UNIT/ML VIAL SQ SCH ×3 (07:38→19:44)
[2020-01-25 09:35] LABS: Protein/Creatinine Ratio,Urine 0.25 mg/mg (0.00-0.20); Sodium, Urine 22.9 mEq/L
[2020-01-25] MEDS ORDERED: Ibuprofen 600 MG TABLET PO PRN (09:43)
[2020-01-25] MEDS ORDERED: Acetaminophen 325 MG TABLET PO PRN (11:33)
[2020-01-25] MEDS ORDERED: Haloperidol Lactate 5 MG/ML VIAL IM PRN (11:36)
[2020-01-26] MEDS ORDERED: *HR* LORazepam 2 MG/ML VIAL IVP ONE (04:07)
[2020-01-26 05:33] LABS: Hematocrit 44.2 % (37.5-50.1); Hemoglobin 15.1 g/dL (12.9-16.9); Mean Corpuscular HGB Conc 34.2 g/dL (31.6-35.5); Mean Corpuscular Hemoglobin 31.3 pg (28.0-33.3); Mean Corpuscular Volume 91.5 fL (83.0-100.0); Mean Platelet Volume 10.2 fL (9.4-12.4); Red Blood Count 4.83 M/mcL (4.19-5.50); Red Cell Distribution Width 13.1 % (11.5-14.5); White Blood Count 7.6 K/mcL (4.3-11.1)
[2020-01-26 05:52] LABS: BUN/Creatinine Ratio 26 (6-26); Blood Urea Nitrogen 19 mg/dL (6-20); Carbon Dioxide 22 mEq/L (23-29); Chloride 106 mEq/L (98-107); Creatine Kinase 886 Units/L (30-223); Glucose 90 mg/dL (70-105); Osmolality,Calculated 284 (280-300); Potassium 3.8 mEq/L (3.5-5.1); Sodium 136 mEq/L (136-145); eGFR For African Americans > 60 (> 60); eGFR For Non-African Americans > 60 (> 60)
[2020-01-26] MEDS: *HR* Heparin 5,000 UNIT/ML VIAL SQ SCH (06:03)
[2020-01-26 07:14] VITALS: BP 102/66
[2020-01-26] MEDS ORDERED: Ringers Solution, Lactated 1,000 ML IVC SCH ×2 (09:15)
[2020-01-26] MEDS ORDERED: Nicotine 21 MG PATCH.TD24 TD SCH (10:30)
== END 2020-01-26 11:01 | disposition left against medical advice (07) ==
LOC: 3BNU 04:12 → EMEROOARM 04:12 → SUATTDRO 05:59 → 3BNU 06:36
PROVIDERS: ADMIT Internal Medicine; ATTEND Internal Medicine

== ENCOUNTER 2020-05-21 16:26 | Observation (INO) ==
[2020-05-21 17:17] LABS: Bilirubin,Urine Negative (Negative); Blood,Urine Negative (Negative); Clarity,Urine Clear (Clear); Color,Urine Yellow (Yellow); Glucose,Urine (UA) Normal (Normal); Ketones,Urine Negative (Negative); Leukocyte Esterase,Urine Negative (Negative); Nitrite,Urine Negative (Negative); PH,Urine 6.5 pH Units (5.0-8.0); Protein,Urine Trace mg/dL (Neg-Trace); Specific Gravity,Urine > 1.030 (1.010-1.025)
[2020-05-21 17:19] LABS: Basophils % 0.4 %; Eosinophils # 0.2 K/mcL (0.0-0.6); Eosinophils % 2.3 %; Hematocrit 46.5 % (37.5-50.1); Immature Granulocytes % 0.1 % (0-4); Lymphocytes # 2.4 K/mcL (0.6-4.6); Lymphocytes % 29.1 %; Mean Corpuscular HGB Conc 34.4 g/dL (31.6-35.5); Mean Corpuscular Hemoglobin 31.1 pg (28.0-33.3); Mean Corpuscular Volume 90.5 fL (83.0-100.0); Mean Platelet Volume 10.3 fL (9.4-12.4); Monocytes % 12.5 %; Neutrophils # 4.6 K/mcL (1.6-8.9); Platelet Count 167 K/mcL (140-400); Red Blood Count 5.14 M/mcL (4.19-5.50); Red Cell Distribution Width 12.8 % (11.5-14.5); Segmented Neutrophils % 55.6 %; White Blood Count 8.3 K/mcL (4.3-11.1)
[2020-05-21 17:33] LABS: Amphetamine Screen,Urine Negative ng/mL (Cutoff=1000); Barbiturate Screen,Urine Negative ng/mL (Cutoff=200); Benzodiazepines Screen,Urine Negative ng/mL (Cutoff=200); Cannabinoid Screen,Urine Negative ng/mL (Cutoff = 50); Cocaine Screen,Urine Negative ng/mL (Cutoff= 300); Opiate Screen,Urine Negative ng/mL (Cutoff=300); Phencyclidine Screen,Urine Negative ng/mL (Cutoff=25)
[2020-05-21 17:38] LABS: Acetaminophen < 10 mcg/mL (10-20); BUN/Creatinine Ratio 19 (6-26); Blood Urea Nitrogen 15 mg/dL (6-20); Calcium 9.4 mg/dL (8.6-10.3); Carbon Dioxide 28 mEq/L (23-29); Chloride 105 mEq/L (98-107); Ethanol < 10 mg/dL (Less than 10); Glucose 99 mg/dL (70-105); Osmolality,Calculated 291 (280-300); Potassium 3.9 mEq/L (3.5-5.1); Salicylate < 2.5 mg/dL (15.0-30.0); Sodium 140 mEq/L (136-145); eGFR For African Americans > 60 (> 60); eGFR For Non-African Americans > 60 (> 60)
[2020-05-21] MEDS ORDERED: haloperidoL 5 MG TABLET PO PRN (19:33)
[2020-05-21] MEDS ORDERED: *HR* LORazepam 1 MG TABLET PO PRN (19:33)
[2020-05-21] MEDS ORDERED: QUEtiapine Fumarate 25 MG TABLET PO PRN (19:33)
[2020-05-21] MEDS ORDERED: *HR* LORazepam 2 MG/ML VIAL IM PRN (19:33)
[2020-05-21] MEDS ORDERED: Mag Hydrox/Al Hydrox/Simeth 30 ML UDC PO PRN (19:33)
[2020-05-21] MEDS ORDERED: hydrOXYzine pamoate 25 MG CAPSULE PO PRN (19:33)
[2020-05-21] MEDS ORDERED: Ibuprofen 400 MG TABLET PO PRN (19:33)
[2020-05-21] MEDS ORDERED: MOM Conc 10 ML UD.LIQ PO PRN (19:33)
[2020-05-21] MEDS ORDERED: Haloperidol Lactate 5 MG/ML VIAL IM PRN (19:33)
[2020-05-21] MEDS: Baclofen 10 MG TABLET PO SCH (20:31)
[2020-05-22] MEDS: Baclofen 10 MG TABLET PO SCH ×3 (10:53→20:18)
[2020-05-22] MEDS: Clotrimazole 1% CRM 15 GM TUBE TP SCH ×2 (13:56→20:19)
[2020-05-22] MEDS ORDERED: traZODone 50 MG TABLET PO SCH (21:00)
[2020-05-23 09:07] VITALS: BP 113/77
[2020-05-23] MEDS: Baclofen 10 MG TABLET PO SCH ×2 (09:43→16:09)
[2020-05-23] MEDS: Clotrimazole 1% CRM 15 GM TUBE TP SCH (09:43)
== END 2020-05-23 18:30 | disposition home or self-care (01) ==
LOC: EMEROOARM 16:26 → 1ANU 16:26
PROVIDERS: ADMIT Psychiatry & Neurology Forensic Psychiatry; ATTEND Psychiatry & Neurology Forensic Psychiatry